=== PATIENT | female | born 1970 | race Asian ===

== ENCOUNTER 2019-06-03 15:17 | Emergency (ER) | payer BC ==
[~2019-06-03] VITALS: Ht 152.4 cm; Wt 49.9 kg
[2019-06-03 15:28] VITALS: BP_SYST 136
[2019-06-03] MEDS ORDERED: HYDROcodone/ACETAMIN 5-325 MG TAB (NORCO/ VICODIN) PO ONE (16:15)
[2019-06-03] MEDS ORDERED: DIPH-TET-PERTUS Vaccine 0.5 ML VIAL (ADACEL) I.M. ONE (16:30)
[2019-06-03] MEDS ORDERED: LIDOCAINE 1%, 20 ML MDV 20 ML ONE (16:42)
[2019-06-03] MEDS ORDERED: BACITRACIN 1 GM OINT TP ONE ×2 (17:00→17:11)
[2019-06-03] MEDS ORDERED: CEPHALEXIN 500 MG CAPSULE PO ONE (17:00)
[2019-06-03 17:11] VITALS: BP_SYST 136
[2019-06-03] MEDS ORDERED: CEPHALEXIN 500 MG CAPSULE ONE (17:12)
== END 2019-06-03 17:10 | disposition home or self-care (01) ==
LOC: SED 15:17
DX: S61.212A Laceration without foreign body of right middle finger without damage to nail, initial encounter (principal); W45.8XXA Other foreign body or object entering through skin, initial encounter; Y93.89 Activity, other specified; Y92.89 Other specified places as the place of occurrence of the external cause; Y99.8 Other external cause status
CPT/HCPCS: 12001; 73130; 90471; 90715; 99283; J2001

== ENCOUNTER 2019-06-12 13:19 | Emergency (ER) | payer BC ==
[~2019-06-12] VITALS: Ht 157.5 cm; Wt 49.9 kg
[2019-06-12 13:34] VITALS: BP_SYST 120
[2019-06-12] MEDS ORDERED: BACITRACIN 1 GM OINT TP ONE (14:00)
== END 2019-06-12 14:04 | disposition home or self-care (01) ==
LOC: SED 13:19
DX: S61.212D Laceration without foreign body of right middle finger without damage to nail, subsequent encounter (principal); R03.0 Elevated blood-pressure reading, without diagnosis of hypertension; X58.XXXD Exposure to other specified factors, subsequent encounter
CPT/HCPCS: 99282